=== PATIENT | female | born 1940 | race Caucasian/White ===

== ENCOUNTER 2024-12-08 13:57 | Outpatient (REF) | payer MEDICARE, SELFPAY ==
--- OUTSIDE RECORDS SUMMARY | 2024-12-08 14:55 | XMS_ITS | Encounter Summary ---
Author Organization [employer] Address [address] [place] [address] 7 [place] [address] Care Team Providers Care Trauma Surgeon Name Role Phone Name, Andre BARROSO Primary Care Provider [phone] Reason for Visit * Reason Onset Date Comments FYI 07/26/2023 Encounter Details Date Type Department Care Team (Late st Contact Info) Description 07/26/2023 Telephone [facility] MEDICINE [address] [place], [place] [phone] Name, MD Andre [address] [place], [place] [phone] Social History Tobacco Use Types Packs/Day Years Used Date Smoking Tobacco: Never Smokeless Tobacco: Never Alcohol Use Standard Drinks/Week Comments Never 0 (1 standard drink = 0.6 oz pur e alcohol) Depression Answer Date Recorded Patient Health Questionnaire-9 Score 7 05/06/2023 Depression Answer Date Recorded Patient Health Questionnaire-2 Score 2 05/06/2023 Comments Unknown Sex and Gender Information Value Date Recorded Sex Assigned at Female 09/10/2022 10:29 AM EDT Legal Sex Female 10:29 AM EDT Gender Identity Female 09/10/2022 10:29 AM EDT Sexual Orientation Don't know 09/10/2022 10 :29 AM EDT documented as of this encounter Miscellaneous Notes * Telephone Encounter - Mamie Cheng - 07/31/2023 4:19 PM EDT Ryan Rocha at [facility] stating pt is refusing services till after Aug 14. * Telephone Encounter - Joycelyn Zamarripa - 07/26/2023 2:35 PM EDT Ryan perez Sami at [facility] calling to inform PCP, patient has refused to be seen for intake. documented in this encounter Plan of Treatment Not on file documented as of this encounter Visit Diagnoses Not on filedocumented in this encounter Additional Health Concerns Assessment Noted Time PHQ-9 Depression Total Score: 7 05/06/20 23 2:31 PM EDT documented as of this encounter Care Teams Trauma Surgeon Relationship Specialty Start Date End Date Name, MD Andre [address] [place] [address] PCP - General Family Medicine 02/06/16 documented as of this encounter
--- OUTSIDE RECORDS SUMMARY | 2024-12-08 14:55 | XMS_ITS | Clinical Summary ---
Author Organization [employer] Address [address] [place] [address] 7t [place] [address] Care Team Providers Care Recreational Vehicle Resort Manager Name Role Phone Name, Andre BARROSO Primary Care Provider [phone] Allergies Active Allergy Reactions Criticality Noted Date Comments Erythromycin Palpitations Low 09/26/2022 Penicillin G Rash Low 07/10/2023 Penicillins 09/07/2020 Phenobarbital 07/10/2023 Procaine 07/10/2023 Sulfamethoxazole 09/07/2020 Sulfamethoxazole-Trimethoprim 2022 Thioridazine 07/10/2023 Trimethoprim 09/07/2020 Medications albuterol 108 (90 Base) MCG/ACT inhaler 2 inhalation EVERY 4 HOURS NEEDED For Delivery 36 g 11/18/19 25 Active fluticasone furoate (Arnuity Ellipta) 100 MCG/ACT inhaler Inhale 1 puff Once per day. Rinse mouth with water after use to reduce aftertaste and incidence of candidiasis. Do not swallow. 1 each 2 12/08/19 25 026 Active metoprolol tartrate (Lopressor) 25 MG tablet TAKE 1 TABLET BY MOUTH TWICE A DAY 60 tablet 12/08/19 25 Active ciprofloxacin (Cipro) 500 MG tablet Take 1 tablet (500 mg) by mouth 2 times daily for 5 days. 10 tablet 12/08/19 25 025 Active metoprolol tartrate (Lopressor) 25 MG tablet TAKE 1 TABLET BY MOUTH TWICE A DAY 60 tablet 01/03/20 24 025 Discontinued(Re order (will not trigger notification to Pharmacy)) albuterol 108 (90 Base) MCG/ACT inhaler 2 inhalation EVERY 4 HOURS NEEDED For Delivery 36 g 11 01/03/20 24 025 Discontinued(Re order (will not trigger notification to Pharmacy)) Active Problems Patient Care Coordination No te Formatting of this note migh t be different from the original. C3/CM Sparkle Harper RN Problem Noted Date Diagnosed Date Fear of side effects of medication 01/20/2024 Closed fracture of neck of left femur with routi ne healing 07/11/2023 Status post open reduction a nd internal fixation (ORIF) of fracture 07/11/2023 Age-related osteoporosis wit h current pathological fracture with routine healing 07/11/2023 Assessment & Plan (05/22/2024 6:31 AM EDT): She refuses Fosamax I asked to at least consider OTC Ca+vit D but supplements maker her nauseous She is trying to increase vit D in her diet and we went over a lest of Vit D rich foods Paroxysmal atrial fibrillation 04/12/2023 Assessment & Plan (05/22/2024 6:27 AM EDT): I recommended to use the metoprolol regularly I recommended to use Eliquis but she refused again Asthma 02/10/2016 Assessment & Plan (05/22/2024 6:29 AM EDT): I recommended to start a preventive inhaler or at least daily Singulair but she refused She is only comfortable using PRN albuterol but uses it daily She has not been hospitalized for asthma since she is my patient (more than 10 years) Encounters Date Type Department Care Team Description 12/08/2024 1:15 PM EST Office Visit [facility] MEDICINE [address] [place] [address] Andre Rhodes MD Uncomplicated asthma, unspecified asthma severity, unspecified whether persistent (Primary Dx); Paroxysmal atrial fibrillation (CMS/HCC); Earache on right; Decreased hearing of right ear 11/18/2024 Telephone [facility] MEDICINE [address] [place], [place] [phone] Andre Rhodes MD Med Refill 11/18/2024 Refill [facility] [address] [place], [place] [phone] Andre Rhodes MD from Last 3 Months Social History Tobacco Use Types Packs/Day Years Used Date Smoking Tobacco: Never Smokeless Tobacco: Never Tobacco Cessation:Counseling Given: Not Answered Alcohol Use Standard Drinks/Week Comments Never 0 (1 standard drink = 0.6 oz pur e alcohol) Alcohol Answer Date Recorded Frequency of Alcohol Consumption Not on file 05/21/2024 Average Number of Drinks Not on file 024 Frequency of Binge Drinking Not on file 05/11 Score 0 05/21/2024 Depression Answer Date Recorded Patient Health Questionnaire-9 Score 8 05/21/2024 Patient Health Questionnaire-9 Score 8 05/21/2024 Last PHQ-9: Questionnaire Data Not on file 0 05/21/2024 Housing Stability Answer Date Recorded What is your housing situation today? I have jourdan victor 05/21/[address] you li ve. Do you have problems with any of the following? None of the above 05/21/2024 Food Insecurity Answer Date Recorded Within the past 12 months, y ou worried that your food would run out before you got money to buy more: Never True 05/21/2024 Within the past 12 months,th e food you bought just didn't last and you didn't have enough money to get more: Never True 09/2024 Transportation Answer Date Recorded In the past 12 months, has l ack of transportation kept you from medical appts, meetings, work or from getting things needed for daily living? No 05/21/2024 Utilities Answer Date Recorded In the past 12 months, has t he electric, gas, oil or water company threatened to shut off services in your home? No 05/21/2024 Depression Answer Date Recorded Patient Health Questionnaire-2 Score 6 05/21/2024 Internet Access Answer Date Recorded Internet Access Q1 No 07/13/2024 Internet Access Q2 I do not want or need it 12/2023 Comments Unknown Sex and Gender Information Value Date Recorded Sex Assigned at Female 09/10/2022 10:29 AM EDT Legal Sex Female 10:29 AM EDT Gender Identity Female 09/10/2022 10:29 AM EDT Sexual Orientation Don't know 09/10/2022 10 :29 AM EDT Last Filed Vital Signs Vital Sign Reading Time Taken Comments Blood Pressure 151/95 12/08/2024 1:28 PM EST Pulse 62 12/08/2024 1:28 PM EST Temperature 36.7 ??C (98.1 ??F) 12/08/2024 1:28 PM ES T Respiratory Rate 12 12/08/2024 1:28 PM EST Oxygen Saturation 95% 12/08/2024 1:28 PM EST Inhaled Oxygen Concentration - - Weight 48.4 kg (106 lb 12.8 oz) 12/08/2024 1:28 PM EST Height 160 cm (5' 3 ) 05/21/2024 1:27 PM EDT Body Mass Index 18.92 05/21/2024 1:27 PM EDT Plan of Treatment Health Maintenance Due Date Last Done Comments Pneumococcal Vaccine: 65+ Years (1 of 2 - PCV) 1947 DTaP/Tdap/Td Vaccines (1 - Tdap) 1960 Zoster Vaccines (1 of 2) 1991 RSV Patients and Patients Aged 60 years or older (1 - 1-dose 75+ series) 2016 COVID-19 Vaccine ( - 2023-2 5 season) 2024 Influenza Vaccine (#1) 2024 Alcohol/Substance Use Screening 05/21/2025 05/21/2024 Depression Screening 05/21/2025 05/21/2024, 05/21/2024 SDOH Screening 05/21/2025 05/21/2024 Tobacco Screening 12/08/2025 12/08/2024 HIB Vaccines Aged Out No longer eligi ble based on patient's age to complete this topic HPV Vaccines Aged Out No longer eligi ble based on patient's age to complete this topic Hepatitis A Vaccines Aged Out No long er eligible based on patient's age to complete this topic Hepatitis B Vaccines Aged Out No long er eligible based on patient's age to complete this topic IPV Vaccines Aged Out No longer eligi ble based on patient's age to complete this topic Meningococcal Vaccine Aged Out No john silverio eligible based on patient's age to complete this topic RSV under 20 months Aged Out No longe r eligible based on patient's age to complete this topic Rotavirus Vaccines Aged Out No longer eligible based on patient's age to complete this topic Insurance MEDICARE Care Teams Recreational Vehicle Resort Manager Relationship Specialty Start Date End Date Name, MD Andre [address] [place] [id number] PCP - General Family Medicine 02/06/16
--- OUTSIDE RECORDS SUMMARY | 2024-12-08 14:55 | XMS_ITS | Encounter Summary ---
Author Organization [employer] Address [address] [facility] 7t [place] [address] Care Team Providers Care Dinkey Operator Slag Name Role Phone Name, Andre BARROSO Primary Care Provider [phone] Reason for Visit * Reason Onset Date Comments Appointment Request 09/19/2023 Encounter Details Date Type Department Care Team ([facility] st Contact Info) Description 09/19/2023 Telephone [facility] MEDICINE [address] [place], [place] [phone] Name, MD Andre [address] [place], [place] [phone] Appointment Request Social History Tobacco Use Types Packs/Day Years Used Date Smoking Tobacco: Never Smokeless Tobacco: Never Alcohol Use Standard Drinks/Week Comments Never 0 (1 standard drink = 0.6 oz pur e alcohol) Depression Answer Date Recorded Patient Health Questionnaire-9 Score 7 05/06/2023 Housing Stability Answer Date Recorded What is your housing situation today? I have jourdanshaun victor 08/27/[address] you li ve. Do you have problems with any of the following? None of the above 08/27/2023 Food Insecurity Answer Date Recorded Within the past 12 months, y ou worried that your food would run out before you got money to buy more: Never True 08/27/2023 Within the past 12 months,th e food you bought just didn't last and you didn't have enough money to get more: Never True Transportation Answer Date Recorded In the past 12 months, has l ack of transportation kept you from medical appts, meetings, work or from getting things needed for daily living? Yes, it has kept me from medical appointments or getting medications. 08/22/2023 Utilities Answer Date Recorded In the past 12 months, has t he [employer], [employer], oil or water [employer] threatened to shut off services in your home? No 08/27/2023 Depression Answer Date Recorded Patient Health Questionnaire-2 Score 2 05/06/2023 Comments Unknown Sex and Gender Information Value Date Recorded Sex Assigned at Female 09/10/2022 10:29 AM EDT Legal Sex Female 10:29 AM EDT Gender Identity Female 09/10/2022 10:29 AM EDT Sexual Orientation Don't know 09/10/2022 10 :29 AM EDT documented as of this encounter Miscellaneous Notes * Telephone Encounter - Marsha [place] - 09/19/2023 2:00 PM EST Tc from pt to schedule f/u appt, expert medical writer attempted to schedule but pt want a televisit instead of coming to the office, need PCP authorization. Please contact pt with appt [phone]. documented in this encounter Plan of Treatment Not on file documented as of this encounter Visit Diagnoses Not on filedocumented in this encounter Additional Health Concerns Assessment Noted Time PHQ-9 Depression Total Score: 7 05/06/20 23 2:31 PM EDT documented as of this encounter Care Teams Dinkey Operator Slag Relationship Specialty Start Date End Date Name, MD Andre [address] [place] [address] PCP - General Family Medicine 02/06/16 documented as of this encounter
--- OUTSIDE RECORDS SUMMARY | 2024-12-08 14:55 | XMS_ITS | Encounter Summary ---
Author Organization [employer] Address [address] [place] [address] 7t [place] [address] Care Team Providers Care Design Printing Machine Setter Name Role Phone Name, Andre BARROSO Primary Care Provider [phone] Reason for Visit * Reason Onset Date Comments Care Coordination 04/30/2023 Encounter Details Date Type Department Care Team ([facility] st Contact Info) Description 04/30/2023 Telephone [facility] MEDICINE [address] [place], [place] [phone] Name, MD Andre [address] [place], [place] [phone] Care Coordination Social History Tobacco Use Types Packs/Day Years Used Date Smoking Tobacco: Never Assessed Alcohol Answer Date Recorded Frequency of Alcohol [...] Don't know 09/10/2022 10 :29 AM EDT COVID-19 Exposure Response Date Recorded In the last 10 days, have yo u been in contact with someone who was confirmed or suspected to have Coronavirus/COVID-19? No / Unsure 05/06/2023 2:10 PM EDT documented as of this encounter Miscellaneous Notes * Telephone Encounter - Kezia Grewal - 04/30/2023 2:27 PM EDT Tc from pt returning call. documented in this encounter Plan of Treatment Not on file documented as of this encounter Visit Diagnoses Not on filedocumented in this encounter Care Teams Design Printing Machine Setter Relationship Specialty Start Date End Date Name, MD Andre [address] [place] [address] PCP - General Family Medicine 02/06/16 documented as of this encounter
--- OUTSIDE RECORDS SUMMARY | 2024-12-08 14:55 | XMS_ITS | Encounter Summary ---
Author Organization [employer] Address [address] [place] [address] 7t [place] [address] Care Team Providers Care Surface Water Technician Name Role Phone Name, Andre BARROSO Primary Care Provider [phone] Reason for Visit * Reason Onset Date Comments Results 05/15/2023 Encounter Details Date Type Department Care Team ([facility] st Contact Info) Description 05/15/2023 Telephone [facility] MEDICINE [address] [place], [place] [phone] Name, MD Andre [address] [place], [place] [phone] Results Social History Tobacco Use Types Packs/Day Years [...] encounter Miscellaneous Notes * Telephone Encounter - Patricio George RN - 05/16/2023 1:04 PM EDT T/C to [phone] for below message, No answer. LVM to call back on [phone]. * Telephone Encounter - Kezia Grewal - 05/15/2023 3:02 PM EDT Tc from pt requesting lab results, pt would like results printed and sent to home address on file. Please contact at [phone] documented in this encounter Plan of Treatment Not on file documented as of this encounter Visit Diagnoses Not on filedocumented in this encounter Additional Health Concerns Assessment Noted Time PHQ-9 Depression Total Score: 7 05/06/20 23 2:31 PM EDT documented as of this encounter Care Teams Surface Water Technician Relationship Specialty Start Date End Date Name, MD Andre [address] [place] [address] PCP - General Family Medicine 02/06/16 documented as of this encounter
--- OUTSIDE RECORDS SUMMARY | 2024-12-08 14:55 | XMS_ITS | Encounter Summary ---
Author Organization [employer] Address [address] [facility] 7t [place] [address] Care Team Providers Care Marketing Analytics Analyst Name Role Phone Name, Andre BARROSO Primary Care Provider Reason for Visit * Reason Onset Date Comments FYI 09/19/2023 Encounter Details Date Type Department Care Team ([facility] st Contact Info) Description 09/19/2023 Telephone [facility] MEDICINE [address] [place], [place] [phone] Name, MD Andre [address] [place], [place] [phone] FYI Social History Tobacco Use Types Packs/Day Years [...] the past 12 months, has t he [employer], [employer], oil or water [facility] threatened to shut off services in your [...] encounter Miscellaneous Notes * Telephone Encounter - Radha Prieto RN - 09/20/2023 10:05 AM EST Tc from Rosario with [facility] calling to advise PCP pt is refusing PT services and will be discharged. Any questions, please contact Rosario at [phone] TC to patient and to Rosario to follow up on above message. No answer. Routing to PCP for review. * Telephone Encounter - Anneliese Iglesias - 09/19/2023 4:21 PM EST Tc from Rosario with [facility] calling to advise PCP pt is refusing PT services and will be discharged. Any questions, please contact Rosario at [phone] documented in this encounter Plan of Treatment Not on file documented as of this encounter Visit Diagnoses Not on filedocumented in this encounter Additional Health Concerns Assessment Noted Time PHQ-9 Depression Total Score: 7 05/06/20 23 2:31 PM EDT documented as of this encounter Care Teams Marketing Analytics Analyst Relationship Specialty Start Date End Date Name, MD Andre [address] [place] [address] PCP - General Family Medicine 02/06/16 documented as of this encounter
--- OUTSIDE RECORDS SUMMARY | 2024-12-08 14:55 | XMS_ITS | Encounter Summary ---
Author Organization [employer] Address [address] [place] [address] 7 [place] [address] Care Team Providers Care Steamboat Captain Name Role Phone Name, Andre BARROSO Primary Care Provider [phone] Reason for Visit * Reason Onset Date Comments Med Refill 11/18/2024 Encounter Details Date Type Department Care Team ([facility] st Contact Info) Description 11/18/2024 Telephone [facility] MEDICINE [address] [place], [place] [phone] Name, MD Andre [address] [place], [place] [phone] Med Refill Social History Tobacco Use Types Packs/Day Years [...] housing situation today? I have jourdanshaun victor 05/21/[address] you [...] encounter Miscellaneous Notes * Telephone Encounter - Anat Boudreaux RN - 11/18/2024 4:31 PM EST Incoming call from Anat at [facility] pharmacy. States rx received for albuterol inhaler form covering provider. Anat reports that pt fills 2 inhalers at a time with directions to take 2 puffs every 4 hrswhich is a 34 day supply. Anat reports that pt has consistently been filling this rx every 28 days. Anat states pt reported having an upcoming appointment. Anat requesting that pcp consider rx an inhaled corticosteroid at upcoming appointment. Message forwarded to pcp for review. * Telephone Encounter - Eddie Soto - 11/18/2024 9:42 AM EST TC from pt requesting medication refill. Medications needing refill : albuterol 108 (90 Base) MCG/ACT inhaler To be sent to: [facility] documented in this encounter Plan of Treatment Not on file documented as of this encounter Visit Diagnoses Not on filedocumented in this encounter Additional Health Concerns Assessment Noted Time PHQ-9 Depression Total Score: 8 05/21/20 24 1:45 PM EDT documented as of this encounter Care Teams Steamboat Captain Relationship Specialty Start Date End Date Name, MD Andre [address] [place] [address] PCP - General Family Medicine 02/06/16 documented as of this encounter
--- OUTSIDE RECORDS SUMMARY | 2024-12-08 14:55 | XMS_ITS | Encounter Summary ---
Author Organization [employer] Address [address] [place] [address] 7 [place] [address] Care Team Providers Care Store Loss Prevention Manager Name Role Phone Name, Andre BARROSO Primary Care Provider [phone] Reason for Visit * Reason Onset Date Comments FYI 07/10/2023 Encounter Details Date Type Department Care Team ([facility] st Contact Info) Description 07/10/2023 Telephone [facility] MEDICINE [address] [place], [place] [phone] Name, MD Andre [address] [place], [place] [phone] Social History Tobacco Use Types Packs/Day Years [...] encounter Miscellaneous Notes * Telephone Encounter - Chriss Merritt - 07/10/2023 9:08 AM EDT Tc from Estrella with [facility] visiting services informing that on today's visit pt refuse service but will try again on Saturday if pt refuses services than will have to discharge patient from services. If any questions please contact Estrella at [phone] documented in this encounter Plan of Treatment Not on file documented as of this encounter Visit Diagnoses Not on filedocumented in this encounter Additional Health Concerns Assessment Noted Time PHQ-9 Depression Total Score: 7 05/06/20 23 2:31 PM EDT documented as of this encounter Care Teams Store Loss Prevention Manager Relationship Specialty Start Date End Date Name, MD Andre [address] [place] [address] PCP - General Family Medicine 02/06/16 documented as of this encounter
--- OUTSIDE RECORDS SUMMARY | 2024-12-08 14:55 | XMS_ITS | Encounter Summary ---
Author Organization [employer] Address [address] [place] [address] 7 [place] [address] Care Team Providers Care Geotechnician Name Role Phone Name, Andre BARROSO Primary Care Provider [phone] Encounter Details Date Type Department Care Team (Late st Contact Info) Description 07/05/2023 Telephone [facility] MEDICINE [address] [place], [place] [phone] Name, MD Andre [address] [place] [address] Social History Tobacco Use Types Packs/Day Years [...] AM EDT documented as of this encounter Plan of Treatment Not on file documented as of this encounter Visit Diagnoses Not on filedocumented in this encounter Additional Health Concerns Assessment Noted Time PHQ-9 Depression Total Score: 7 05/06/20 23 2:31 PM EDT documented as of this encounter Care Teams Geotechnician Relationship Specialty Start Date End Date Name, MD Andre [address] [place] [address] PCP - General Family Medicine 02/06/16 documented as of this encounter
--- OUTSIDE RECORDS SUMMARY | 2024-12-08 14:55 | XMS_ITS | Encounter Summary ---
Author Organization [employer] Address [address] [facility] 7t [place] [address] Care Team Providers Care Electrical Prospecting Supervisor Name Role Phone Name, Andre BARROSO Primary Care Provider [phone] Reason for Visit * Reason Onset Date Comments Appointment Request 12/04/2023 Encounter Details Date Type Department Care Team ([facility] st Contact Info) Description 12/04/2023 Telephone [facility] MEDICINE 230 [place], [place] [phone] Name, MD Andre [address] [place], [place] [phone] Appointment Request Social History Tobacco Use Types [...] the past 12 months, has t he [employer], [employer], oil or water [employer] threatened to shut off services in your [...] * Telephone Encounter - Chriss Merritt - 12/04/2023 1:58 PM EST Tc from pt requesting to r/s follow up appt on 12/18/23 due to transportation. Pt provided days that could come in, in January which are: January 13,,, Please contact pt @ [phone] documented in this encounter Plan of Treatment Not on file documented as of this encounter Visit Diagnoses Not on filedocumented in this encounter Additional Health Concerns Assessment Noted Time PHQ-9 Depression Total Score: 7 05/06/20 23 2:31 PM EDT documented as of this encounter Care Teams Electrical Prospecting Supervisor Relationship Specialty Start Date End Date Name, MD Andre [address] [place] [address] PCP - General Family Medicine 02/06/16 documented as of this encounter
--- OUTSIDE RECORDS SUMMARY | 2024-12-08 14:55 | XMS_ITS | Encounter Summary ---
Author Organization [employer] Address [address] [facility] 7t [place] [address] Care Team Providers Care Cheerleading Coach Name Role Phone Name, Andre BARROSO Primary Care Provider [phone] Reason for Visit * Reason Onset Date Comments Appointment Request 12/16/2023 Encounter Details Date Type Department Care Team ([facility] st Contact Info) Description 12/16/2023 Telephone [facility] MEDICINE [address] [place], [place] [phone] Name, MD Andre [address] [place], [place] [phone] Appointment Request Social History Tobacco Use Types [...] the past 12 months, has t he [employer], [employer], oil or [employer] threatened to shut off services in your [...] Telephone Encounter - Patricio George RN - 12/16/2023 10:38 AM EST T/C to pt. For below message, pt. States she wants to re-schedule apt. Due to her son brings her toapt. And her son is available on below dates only. After get approval from Dominique, pt. Is schedulefor FU apt. On @ 3.45 pm. Pt. Verbally agreed and understood. Tc from patient calling to cancel appt on 01/13 with the PCP states the only availability the patient haves is on 01/12,01/19,02/05,02/06 and would like a afternoon appt if possible * Telephone Encounter - Jalil Troncoso - 12/16/2023 9:40 AM EST Tc from patient calling to cancel appt on 01/13 with the PCP states the only availability the patienthaves is on 01/12,01/19,02/05,02/06 and would like a afternoon appt if possible documented in this encounter Plan of Treatment Not on file documented as of this encounter Visit Diagnoses Not on filedocumented in this encounter Additional Health Concerns Assessment Noted Time PHQ-9 Depression Total Score: 7 05/06/20 23 2:31 PM EDT documented as of this encounter Care Teams Cheerleading Coach Relationship Specialty Start Date End Date Name, MD Andre [address] [place] [id number] PCP - General Family Medicine 02/06/16 documented as of this encounter
--- OUTSIDE RECORDS SUMMARY | 2024-12-08 14:55 | XMS_ITS | Encounter Summary ---
Author Organization [employer] Address [address] [place] [address] 7 [place] [address] Care Team Providers Care Instructional Support Technician Name Role Phone Name, Andre BARROSO Primary Care Provider [phone] Reason for Visit * Reason Comments Follow-up extended Encounter Details Date Type Department Care Team (Latest Contact Info) Description 12/08/2024 1:15 PM EST Office Visit [facility] MEDICINE [address] [place] [address] Name, MD Andre [address] [place] [phone] Uncomplicated asthma, unspecified asthma severity, unspecified whether persistent (Primary Dx); Paroxysmal atrial fibrillation (CMS/HCC); Earache on right; Decreased hearing of right ear Social History Tobacco Use Types Packs/Day Years [...] AM EDT documented as of this encounter Last Filed Vital Signs Vital Sign Reading [...] 12.8 oz) 12/08/2024 1:28 PM EST Height - - Body Mass Index 18.92 05/21/2024 1:27 PM EDT documented in this encounter Progress Notes * Andre Rhodes MD - 12/08/2024 1:15 PM EST Subjective Patient ID: Karrie Vera is a 84 y.o. female who presents for Follow-up (extended). Patient comes for a follow-up visit. She is alone for her visit today. She is examined in a wheelchair. The patient explains to me that she lives alone and is independent. She has a supportive familymembers. The patient does not walk much since she had a femur fracture 2 years ago. She has osteoporosis. In general she is reluctant to use medications. She has paroxysmal A-fib that is rate controll ed on metoprolol but she refuses anticoagulation. She has years of asthma and has refused multiple times to use preventive inhalers. She has never been hospitalized since she is my patient for more than 10 years. She uses albuterol regularly. She uses ehma-pea-juoyits calcium with vitamin D but refuses Fosamax. Her memory is good. She feels he has enough support at home. She refuses any vaccination. Her weight is stable. She tells me she has a good appetite. Her son brings her to appointments Review of Systems Constitutional: Negative for chills and fever. HENT: Negative for sore throat. Today she complains of several days of right ear discomfort and decreased hearing. No fevers or chills. No vertigo. The patient believes she has a right otitis media. She had similar symptoms severalyears ago. Respiratory: Negative for cough, shortness of breath and wheezing. Cardiovascular: Negative for chest pain, palpitations and leg swelling. Gastrointestinal: Negative for abdominal pain. Visit Vitals BP (!) 151/95 (BP Location: Left arm, Patient Position: Sitting, BP Cuff Size: Adult) Pulse 62 Temp 98.1 ??F (36.7 ??C) (Temporal) Resp 12 Wt 106 lb 12.8 oz (48.4 kg) SpO2 95% BMI 18.92 kg/m?? Smoking Status Never BSA 1.47 m?? Objective Physical Exam Constitutional: Appearance: Normal appearance. Comments: Patient is examined in her wheelchair HENT: Right Ear: External ear normal. Left Ear: External ear normal. Ears: Comments: Patient had moderate amount of cerumen of both ear canals. I cannot visualize the right tympanic membrane well. Cardiovascular: Rate and Rhythm: Normal rate. Rhythm irregular. Heart sounds: No murmur heard. No gallop. Pulmonary: Effort: Pulmonary effort is normal. No respiratory distress. Breath sounds: Normal breath sounds. No wheezing. Musculoskeletal: Right lower leg: No edema. Left lower leg: No edema. Neurological: Mental Status: She is alert. Assessment/Plan Diagnoses and all orders for this visit: Uncomplicated asthma, unspecified asthma severity, unspecified whether persistent Comments: The patient agreed to a trial of daily Arnuity for asthma prevention. We discussed the benefits of inhaled steroid for treatment of asthma. Continue rescue albuterol. Paroxysmal atrial fibrillation (CMS/HCC) Comments: Patient refuses Eliquis. She knows she is at an increased risk of strokes. I encouraged her to use the metoprolol daily for rate control. Earache on right Comments: I agreed to treat the patient empirically for right otitis media. She has numerous antibiotic allergies. I prescribed her a course of Cipro. She tolerated Cipro in the past without any problems. She is asked to call if her symptoms persist Decreased hearing of right ear Other orders She is reminded to go for the blood work ordered at her previous visit because of her history of osteoporosis. - fluticasone furoate (Arnuity Ellipta) 100 MCG/ACT inhaler; Inhale 1 puff Once per day. Rinse mouth with water after use to reduce aftertaste and incidence of candidiasis. Do not swallow. - metoprolol tartrate (Lopressor) 25 MG tablet; TAKE 1 TABLET BY MOUTH TWICE A DAY - ciprofloxacin (Cipro) 500 MG tablet; Take 1 tablet (500 mg) by mouth 2 times daily for 5 days. documented in this encounter Plan of Treatment Not on file documented as of this encounter Visit Diagnoses Diagnosis Uncomplicated asthma, unspecified asthma severity, unspecified whether persistent- Primary Paroxysmal atrial fibrillation (CMS/HCC) Atrial fibrillation Earache on right Decreased hearing of right ear documented in this encounter Additional Health Concerns Assessment Noted Time PHQ-9 Depression Total Score: 8 05/21/20 24 1:45 PM EDT documented as of this encounter Care Teams Instructional Support Technician Relationship Specialty Start Date End Date Name, MD Andre [address] [place] [address] PCP - General Family Medicine 02/06/16 documented as of this encounter
--- OUTSIDE RECORDS SUMMARY | 2024-12-08 14:55 | XMS_ITS | Encounter Summary ---
Author Organization [employer] Address [address] [facility] 7t [place] [address] Care Team Providers Care Calender Let Off Helper Name Role Phone Name, Andre BARROSO Primary Care Provider [phone] Reason for Visit * Reason Onset Date Comments Med Refill 11/18/2024 Encounter Details Date Type Department Care Team (Late st Contact Info) Description 11/18/2024 Refill [facility]S [address] [place], [place] [phone] Name, MD Andre [address] [place] [address] Social History Tobacco Use Types Packs/Day Years [...] your housing situation today? I have jourdan kayleigh 05/21/[address] you li [...] documented as of this encounter Care Teams Calender Let Off Helper Relationship Specialty Start Date End Date Name, MD Andre [address] [place] [address] PCP - General Family Medicine 02/06/16 documented as of this encounter
[2024-12-08 16:48] LABS: Anion Gap 11 (12-20); Blood Urea Nitrogen 13 mg/dL (9-16); Calcium 9.2 mg/dL (8.4-10.2); Carbon Dioxide 28 mmol/L (22-29); Chloride 104 mmol/L (96-108); Estimated Glomerular Filt Rate > 60; Glucose Random 103 mg/dL (60-115); Potassium 3.9 mmol/L (3.3-5.1); Sodium 139 mmol/L (135-145)
[2024-12-08 17:01] LABS: Vitamin D 25-OH Total 27.1 ng/mL (>30)
[2024-12-08 17:04] LABS: Parathyroid Hormone Intact 79.9 pg/mL (8.7-77.1)
== END 2024-12-08 13:58 | disposition home or self-care (01) ==
LOC: HO.HHCL 13:57
PROVIDERS: Visit Provider Internal Medicine Geriatric Medicine
DX: M80.00XD Age-related osteoporosis with current pathological fracture, unspecified site, subsequent encounter for fracture with routine healing (principal)
CPT/HCPCS: 36415; 80048; 82306; 83970

== ENCOUNTER 2025-09-15 15:08 | Outpatient (REF) | payer MEDICARE, SELFPAY ==
--- OUTSIDE RECORDS SUMMARY | 2025-09-15 14:30 | XMS_ITS | Encounter Summary ---
Author Organization [employer] Address [address] [place] [address] 7t [place] [address] Care Team Providers Care Sheriffs Detective Name Role Phone Name, Andre BARROSO Primary Care Provider [phone] Reason for Visit * Reason Comments Follow-up Encounter Details Date Type Department Care Team (Late st Contact Info) Description 09/15/2025 2:30 PM EST Office Visit [facility] MEDICINE [address] [place], [place] [phone] Name, MD Andre [address] [place] [address] Asthma, unspecified asthma severity, unspecified whether complicated, unspecified whether persistent (Primary Dx); Fear of side effects of medication; Chronic atrial fibrillation (CMS/HCC) (HCC); Rib pain; Vaccine refused by patient Social History Tobacco Use Types Packs/Day Years [...] Answer Date Recorded Patient Health Questionnaire-9 Score 6 03/31/2025 Patient Health Questionnaire-9 Score 6 03/31/2025 Last PHQ-9: Questionnaire Data Not on file 0 03/31/2025 Housing Stability Answer Date Recorded What is [...] Answer Date Recorded Patient Health Questionnaire-2 Score 0 03/31/2025 Internet Access Answer Date Recorded Internet Access Q1 Yes 06/12/2025 Internet Access Q2 Not on file 06/12/2025 Comments Unknown Sex and Gender Information Value Date Recorded Sex Assigned at Female 09/10/2022 10:29 AM EDT Legal Sex Female 10:29 AM EDT Gender Identity Female 09/10/2022 10:29 AM EDT Sexual Orientation Don't know 09/10/2022 10 :29 AM EDT documented as of this encounter Last Filed Vital Signs Vital Sign Reading Time Taken Comments Blood Pressure 138/82 09/15/2025 2:33 PM EST Pulse 112 09/15/2025 2:33 PM EST Temperature 36.1 C (97 F) 09/15/2025 2:33 PM EST Respiratory Rate 14 09/15/2025 2:33 PM EST Oxygen Saturation 98% 09/15/2025 2:33 PM EST Inhaled Oxygen Concentration - - Weight 45.9 kg (101 lb 3.2 oz) 09/15/2025 2:33 P M EST Height 160 cm (5' 3 ) 09/15/2025 2:33 PM EST Body Mass Index 17.93 09/15/2025 2:33 PM EST documented in this encounter Progress Notes * Andre Rhodes MD - 09/15/2025 2:30 PM EST Subjective Patient ID: Karrie Vera is a 85 y.o. female who presents for Follow-up. Patient comes for a follow-up visit. Unfortunately she continues using only albuterol for asthma 3-4 times a day. She is very reluctant to use preventative asthma medication because of fear of possible side effects. I prescribed Arnuity back in November that she never used. I have tried for years toconvince her to use preventive inhalers without success. Fortunately she has not had any ER visits for asthma. No recent URI symptoms. No fevers or chills. She continues to refuse any vaccination. Since her last appointment she had a fall that resulted in trauma to the left anterior chest. She had significant pain and initially that has mostly resolved by now. She is only using topical NSAIDs for pain. She denies trauma to the head. She did not have loss of consciousness. Review of Systems Constitutional: Negative for chills and fever. HENT: Negative for sore throat. Respiratory: Positive for shortness of breath. Negative for cough and wheezing. Cardiovascular: Negative for chest pain, palpitations and leg swelling. Gastrointestinal: Negative for abdominal pain. Musculoskeletal: See HPI Objective Vitals: 09/15/25 1433 BP: 138/82 BP Location: Left arm Patient Position: Sitting BP Cuff Size: Adult Pulse: (!) 112 Resp: 14 Temp: 97 ??F (36.1 ??C) TempSrc: Temporal SpO2: 98% Weight: 101 lb 3.2 oz (45.9 kg) Height: 5' 3 (1.6 m) Physical Exam Constitutional: General: She is not in acute distress. Cardiovascular: Rate and Rhythm: Tachycardia present. Rhythm irregular. Pulmonary: Effort: Pulmonary effort is normal. No respiratory distress. Breath sounds: No wheezing. Musculoskeletal: Right lower leg: No edema. Left lower leg: No edema. Neurological: General: No focal deficit present. Mental Status: She is oriented to person, place, and time. Motor: No weakness. Assessment/Plan Diagnoses and all orders for this visit: Asthma, unspecified asthma severity, unspecified whether complicated, unspecified whether persistent Comments: I discussed the importance of treating bronchial inflammation. I discussed the pathophysiology of asthma. I explained to her the multiple trials showing the effectiveness and safety of inhaled steroids for asthma prevention/decrease severity of asthma attacks. She is encouraged to use the Arnuity she has at home. Continue rescue albuterol. Today she refused any vaccination. Fear of side effects of medication Chronic atrial fibrillation (CMS/HCC) (HCC) Comments: The patient is in A-fib. She is not interested in the use of Eliquis or metoprolol. She understand A-fib increases the risk of stroke. Rib pain Comments: Mild. I recommended to continue using OTC topical remedies. Vaccine refused by patient Comments: Patient refused any vaccination today. documented in this encounter Plan of Treatment Not on file documented as of this encounter Visit Diagnoses Diagnosis Asthma, unspecified asthma severity, unspecified whether complicated, unspecified whether persistent- Primary Fear of side effects of medication Chronic atrial fibrillation (CMS/[facility]) (HCC) Atrial fibrillation Rib pain Unspecified chest pain Vaccine refused by patient documented in this encounter Additional Health Concerns Assessment Noted Time PHQ-9 Depression Total Score: 6 03/31/20 25 2:28 PM EDT documented as of this encounter Care Teams Sheriffs Detective Relationship Specialty Start Date End Date Name, MD Andre [address] [place] [address] PCP - General Family Medicine 02/06/16 documented as of this encounter
[2025-09-15 16:34] LABS: Anion Gap 11 (12-20); Blood Urea Nitrogen 12 mg/dL (9-16); Calcium 9.0 mg/dL (8.4-10.2); Carbon Dioxide 30 mmol/L (22-29); Chloride 106 mmol/L (96-108); Estimated Glomerular Filt Rate > 60; Potassium 4.5 mmol/L (3.3-5.1); Sodium 142 mmol/L (135-145)
[2025-09-15 17:06] LABS: Parathyroid Hormone Intact 92.7 pg/mL (8.7-77.1)
--- OUTSIDE RECORDS SUMMARY | 2025-09-15 18:10 | XMS_ITS | Encounter Summary ---
Author Organization [employer] Address [address] [place] [address] [address] [place] [address] Care Team Providers Care Chief Clerk Name Role Phone Name, Andre BARROSO Primary Care Provider Reason for Visit * Reason Onset Date Comments FYI 07/10/2023 Encounter Details Date Type Department Care Team (Late st Contact Info) Description 07/10/2023 Telephone [facility] MEDICINE 230 [place], [place] [phone] Name, MD Andre [address] [place] [address] Social History Tobacco Use Types Packs/Day Years [...] Merritt - 07/10/2023 9:08 AM EDT Tc ana De La Rosa with Homehealth visiting services informing that on today's visit pt refuse service but will try again on Saturday if pt refuses services than will have to discharge patient from services. If any questions please contact Estrella at [phone] documented in this encounter Plan of Treatment Not on file documented as of this encounter Visit Diagnoses Not on filedocumented in this encounter Additional Health Concerns Assessment Noted Time PHQ-9 Depression Total Score: 7 05/06/20 23 2:31 PM EDT documented as of this encounter Care Teams Chief Clerk Relationship Specialty Start Date End Date Name, MD Andre [address] [place] [address] PCP - General Family Medicine 02/06/16 documented as of this encounter
--- OUTSIDE RECORDS SUMMARY | 2025-09-15 18:10 | XMS_ITS | Encounter Summary ---
Author Organization [employer] Address [address] [facility] 7t [place] [address] Care Team Providers Care National Facilities Manager Name Role Phone Name, Andre BARROSO Primary Care Provider [phone] Reason for Visit * Reason Onset Date Comments Appointment Request 09/19/2023 Encounter Details Date Type Department Care Team (Late st Contact Info) Description 09/19/2023 Telephone [facility] MEDICINE [address] [place], [place] [phone] Name, MD Andre [address] [place] [address] Appointment Request Social History Tobacco Use Types [...] Tc from pt to schedule f/u appt, magnetic tape typewriter operator attempted to schedule but pt want a televisit instead of coming to the office, need PCP authorization. Please contact pt with appt [phone]. documented in this encounter Plan of Treatment Not on file documented as of this encounter Visit Diagnoses Not on filedocumented in this encounter Additional Health Concerns Assessment Noted Time PHQ-9 Depression Total Score: 7 05/06/20 23 2:31 PM EDT documented as of this encounter Care Teams National Facilities Manager Relationship Specialty Start Date End Date Name, MD Andre [address] [place] [address] PCP - General Family Medicine 02/06/16 documented as of this encounter
--- OUTSIDE RECORDS SUMMARY | 2025-09-15 18:10 | XMS_ITS | Encounter Summary ---
Author Organization [employer] Address [address] [place] [address] 7 [place] [address] Care Team Providers Care Professor Of Music Name Role Phone Name, Andre BARROSO Primary Care Provider [phone] Reason for Visit * Reason Onset Date Comments FYI 07/26/2023 Encounter Details Date Type Department Care Team (Late st Contact Info) Description 07/26/2023 Telephone [facility] MEDICINE [address] [place], [place] [phone] Name, MD Andre [address] [place] [address] Social History Tobacco Use Types Packs/Day Years [...] Mamie Cheng - 07/31/2023 4:19 PM EDT Tc ana Rocha at [facility] stating pt is refusing services till after Aug 14. * Telephone Encounter - Joycelyn Zamarripa - 07/26/2023 2:35 PM EDT Tc from [facility] at [facility] calling to inform PCP, patient has refused to be seen for intake. documented in this encounter Plan of Treatment Not on file documented as of this encounter Visit Diagnoses Not on filedocumented in this encounter Additional Health Concerns Assessment Noted Time PHQ-9 Depression Total Score: 7 05/06/20 23 2:31 PM EDT documented as of this encounter Care Teams Professor Of Music Relationship Specialty Start Date End Date Name, MD Andre [address] [place] [address] PCP - General Family Medicine 02/06/16 documented as of this encounter
--- OUTSIDE RECORDS SUMMARY | 2025-09-15 18:10 | XMS_ITS | Encounter Summary ---
Author Organization [employer] Address [address] [facility] 7t [place] [address] Care Team Providers Care Gate Watchman Name Role Phone Name, Andre BARROSO Primary Care Provider [phone] Reason for Visit * Reason Onset Date Comments Appointment Request 12/16/2023 Encounter Details Date Type Department Care Team (Late st Contact Info) Description 12/16/2023 Telephone [facility] MEDICINE [address] [place] [address] Name, MD Andre [address] [place] [address] Appointment Request Social History Tobacco Use Types [...] documented as of this encounter Care Teams Gate Watchman Relationship Specialty Start Date End Date Name, MD Andre [address] [place] [address] PCP - General Family Medicine 02/06/16 documented as of this encounter
--- OUTSIDE RECORDS SUMMARY | 2025-09-15 18:10 | XMS_ITS | Encounter Summary ---
Author Organization [employer] Address [address] [place] [address] 7[address] [place] [address] Care Team Providers Care Dental Aide Name Role Phone Name, Andre BARROSO Primary Care Provider [phone] Encounter Details Date Type Department Care Team (Late st Contact Info) Description 07/05/2023 Telephone [facility] MEDICINE [address] [place], [place] [phone] Name, MD Andre [address] [place] [address] Social History Tobacco Use Types Packs/Day Years [...] documented as of this encounter Care Teams Dental Aide Relationship Specialty Start Date End Date Name, MD Andre [address] [place] [address] PCP - General Family Medicine 02/06/16 documented as of this encounter
--- OUTSIDE RECORDS SUMMARY | 2025-09-15 18:10 | XMS_ITS | Encounter Summary ---
Author Organization [employer] Address [address] [facility] 7t [place] [address] Care Team Providers Care Intermediate Accountant Name Role Phone Name, Andre BARROSO Primary Care Provider [phone] Encounter Details Date Type Department Care Team (Latest Contact Info) Description 09/15/2025 Travel Social History Tobacco Use Types Packs/Day Years [...] documented as of this encounter Care Teams Intermediate Accountant Relationship Specialty Start Date End Date Name, MD Andre [address] [place] [address] PCP - General Family Medicine 02/06/16 documented as of this encounter
--- OUTSIDE RECORDS SUMMARY | 2025-09-15 18:10 | XMS_ITS | Encounter Summary ---
Author Organization [employer] Address [address] [facility] 7t [place] [address] Care Team Providers Care Oil Rig Driller Name Role Phone Name, Andre BARROSO Primary Care Provider [phone] Encounter Details Date Type Department Care Team (Latest Contact Info) Description 09/14/2025 Travel Social History Tobacco Use Types Packs/Day [...] documented as of this encounter Care Teams Oil Rig Driller Relationship Specialty Start Date End Date Name, MD Andre [address] [place] [address] PCP - General Family Medicine 02/06/16 documented as of this encounter
--- OUTSIDE RECORDS SUMMARY | 2025-09-15 18:10 | XMS_ITS | Encounter Summary ---
Author Organization [employer] Address [address] [facility] 7t [place] [address] Care Team Providers Care Net Mender Name Role Phone Name, Andre BARROSO Primary Care Provider [phone] Reason for Visit * Reason Onset Date Comments FYI 09/19/2023 Encounter Details Date Type Department Care Team (Late st Contact Info) Description 09/19/2023 Telephone [facility] MEDICINE 230 [place], [place] [phone] Name, MD Andre [address] [place] [address] FYI Social History Tobacco Use Types Packs/Day [...] 10:05 AM EST Tc from Rosario with [facility] calling to advise PCP pt is refusing PT services and will be discharged. Any questions, please contact Rosario at [phone] TC to patient and to Rosario to follow up on above message. No answer. Routing to PCP for review. * Telephone Encounter - Anneliese Iglesias - 09/19/2023 4:21 PM EST Tc from [place]ario with [facility] calling to advise PCP pt is refusing PT services and will be discharged. Any questions, please contact Rosario at [phone] documented in this encounter Plan of Treatment Not on file documented as of this encounter Visit Diagnoses Not on filedocumented in this encounter Additional Health Concerns Assessment Noted Time PHQ-9 Depression Total Score: 7 05/06/20 23 2:31 PM EDT documented as of this encounter Care Teams Net Mender Relationship Specialty Start Date End Date Name, MD Andre [address] [place] [address] PCP - General Family Medicine 02/06/16 documented as of this encounter
--- OUTSIDE RECORDS SUMMARY | 2025-09-15 18:10 | XMS_ITS | Encounter Summary ---
Author Organization [employer] Address [address] [facility] 7t [place] [address] Care Team Providers Care Tub Chucker Name Role Phone Name, Andre BARROSO Primary Care Provider [phone] Reason for Visit * Reason Onset Date Comments Appointment Request 12/04/2023 Encounter Details Date Type Department Care Team (Late st Contact Info) Description 12/04/2023 Telephone [facility] [address] [place] [address] Name, MD Andre [address] [place] [address] Appointment Request Social History Tobacco Use Types [...] Miscellaneous Notes * Telephone Encounter - Chriss Jimenez Merritt - 12/04/2023 1:58 PM EST Tc from pt requesting to r/s follow up appt on 12/18/23 due to transportation. Pt provided days that could come in, in January which are: January 13,,, Please contact pt @ [phone] documented in this encounter Plan of Treatment Not on file documented as of this encounter Visit Diagnoses Not on filedocumented in this encounter Additional Health Concerns Assessment Noted Time PHQ-9 Depression Total Score: 7 05/06/20 23 2:31 PM EDT documented as of this encounter Care Teams Tub Chucker Relationship Specialty Start Date End Date Name, MD Andre [address] [place] [address] PCP - General Family Medicine 02/06/16 documented as of this encounter
--- OUTSIDE RECORDS SUMMARY | 2025-09-15 18:10 | XMS_ITS | Encounter Summary ---
Author Organization [employer] Address [address] [facility] 7t [place] [address] Care Team Providers Care Sled Maker Name Role Phone Name, Andre BARROSO Primary Care Provider [phone] Reason for Visit * Reason Onset Date Comments chart prep 09/14/2025 Encounter Details Date Type Department Care Team (Late st Contact Info) Description 09/14/[address] [facility] [address] [place] [phone] Caryl Freed MA chart prep Social History Tobacco Use Types Packs/Day Years [...] encounter Miscellaneous Notes * Telephone Encounter - Caryl Freed MA - 09/14/2025 6:15 PM EST Chart Prep Labs: not done Images: not applicable Referrals: not applicable Vaccines due: PCV20, Tdap, Td, RSV, Zoster, and DTAP Screenings: not applicable Overdue care gaps: Not applicable documented in this encounter Plan of Treatment Not on file documented as of this encounter Visit Diagnoses Not on filedocumented in this encounter Additional Health Concerns Assessment Noted Time PHQ-9 Depression Total Score: 6 03/31/20 25 2:28 PM EDT documented as of this encounter Care Teams Sled Maker Relationship Specialty Start Date End Date Name, MD Andre [address] [place] [address] PCP - General Family Medicine 02/06/16 documented as of this encounter
--- OUTSIDE RECORDS SUMMARY | 2025-09-15 18:10 | XMS_ITS | Encounter Summary ---
Author Organization [employer] Address [address] [facility] 7t [place] [address] Care Team Providers Care Shipping Checker Name Role Phone Name, Andre BARROSO Primary Care Provider [phone] Reason for Visit * Reason Onset Date Comments Results 01/29/2025 Encounter Details Date Type Department Care Team ([facility] st Contact Info) Description 01/29/2025 Telephone [facility] [address] [place], [place] [phone] Name, MD Adnre [address] [place] [address] Results Social History Tobacco Use Types Packs/Day [...] encounter Miscellaneous Notes * Telephone Encounter - Wing Margarita RN - 01/29/2025 9:15 AM EDT Tc to pt regarding lab results from 12/08. Reported that PCP stated Vit D was low and supplements were to be sent. Pt confirms that she is currently taking them. Also request for labs done on that dayto be mailed to her. Confirmed her address and will mail lab results to her. Pt verbalized understanding and agreement with plan. * Telephone Encounter - Fabio Figueroa - 01/29/2025 8:36 AM EDT TC from pt requesting call back regarding Results. Type of results: Vitamin D, PTH , Metabolic panel Date when done: 12/08/2024 Facility: [facility] documented in this encounter Plan of Treatment Not on file documented as of this encounter Visit Diagnoses Not on filedocumented in this encounter Additional Health Concerns Assessment Noted Time PHQ-9 Depression Total Score: 8 05/21/20 24 1:45 PM EDT documented as of this encounter Care Teams Shipping Checker Relationship Specialty Start Date End Date Name, MD Andre [address] [place] [address] PCP - General Family Medicine 02/06/16 documented as of this encounter
--- OUTSIDE RECORDS SUMMARY | 2025-09-15 18:10 | XMS_ITS | Clinical Summary ---
Author Organization [employer] Address [address] [facility] 7t [place] [address] Care Team Providers Care Advertising Job Titles Name Role Phone Name, Andre BARROSO Primary Care Provider [phone] Allergies Active Allergy Reactions Criticality Noted Date Comments Erythromycin Palpitations Low 09/26/2022 Penicillin G Rash Low 07/10/2023 Penicillins 09/07/2020 Phenobarbital 07/10/2023 Procaine 07/10/2023 Sulfamethoxazole 09/07/2020 Sulfamethoxazole-Trimethoprim 2022 Thioridazine 07/10/2023 Trimethoprim 09/07/2020 Medications fluticasone furoate (Arnuity Ellipta) 100 MCG/ACT inhaler Inhale 1 puff Once per day. Rinse mouth with water after use to reduce aftertaste and incidence of candidiasis. Do not swallow. 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 For Delivery 30 capsule 11 5 12/10/19 26 Active Active Problems Patient Care Coordination No te Formatting of this note migh t be different from the original. C3/CM Sparkle Harper RN Problem Noted Date Diagnosed Date Vitamin D deficiency 03/31/2025 Fear of side effects of medication 01/20/2024 [...] Vit D rich foods Paroxysmal atrial fibrillation (CMS/HCC) 023 Assessment & Plan (05/22/2024 6:27 AM EDT): [...] Encounters Date Type Department Care Team Description 09/15/2025 2:30 PM EST Office Visit [facility] [address] [place] [address] Name, MD Andre Asthma, unspecified asthma severity, unspecified whether complicated, unspecified whether persistent (Primary Dx); Fear of side effects of medication; Chronic atrial fibrillation (CMS/HCC) (HCC); Rib pain; Vaccine refused by patient 09/15/2025 Travel 09/14/2025 Telephone [facility] [address] [place] [address] Caryl Freed MA chart prep 09/14/2025 Telephone [facility] [address] [place] [address] Caryl Freed MA chart prep 09/14/2025 Travel 09/06/2025 Telephone [facility] [address] [place] [address] Andre Rhodes MD 06/29/2025 Telephone [facility] [address] [place] [address] Caryl Freed MA OCT RECALLS from Last 3 Months Social History Tobacco [...] Mass Index 17.93 09/15/2025 2:33 PM EST Plan of Treatment Health Maintenance Due Date Last Done Comments DTaP/Tdap/Td Vaccines (1 - Tdap) 1959 Pneumococcal Vaccine: 50+ Years (1 of 2 - PCV) 1960 Zoster Vaccines (1 of 2) 1991 RSV Patients and Patients Aged 60 years or older (1 - 1-dose 75+ series) 2016 COVID-19 Vaccine ( - 2023-2 5 season) 2025 Influenza Vaccine (#1) 2025 Alcohol/Substance Use Screening 03/31/2026 03/31/2025 Depression Screening 03/31/2026 03/31/2025, 03/31/2025 SDOH Screening 03/31/2026 03/31/2025 Tobacco Screening 09/15/2026 09/15/2025 HIB Vaccines Aged Out No longer eligi [...] patient's age to complete this topic Meningococcal B Vaccine Aged Out No l onger eligible based on patient's age to complete this topic Meningococcal Vaccine Aged Out No john silverio eligible based on patient's age to complete this topic RSV under 20 months Aged Out No longe r eligible based on patient's age to complete this topic Rotavirus Vaccines Aged Out No longer eligible based on patient's age to complete this topic Procedures Procedure Name Priority Date/Time Associated Diagnosis Comments PTH, INTACT WITHOUT CALCIUM Routine 09/15/2025 3:10 PM EST Vitamin D deficiency Secondary hyperparathyroidism (CMS/HCC) VITAMIN D,25-OH,TOTAL,IA Routine 09/15/2025 3:10 PM EST Vitamin D deficiency Secondary hyperparathyroidism (CMS/HCC) BASIC METABOLIC PANEL Routine 09/15/2025 3:10 PM EST Vitamin D deficiency Secondary hyperparathyroidism (CMS/HCC) from Last 3 Months Results * (ABNORMAL) Vitamin D, 25-Hydroxy, Total, Immunoassay (09/15/2025 3:10 PM EST) Vitamin D 25-OH Total 21.7(L) >30 ng/mL [facility] Comment: Health Based Reference Values*< 20 ng/mL [id number] ng/mL Insufficient> 30 ng/mL Sufficient*Judy ZABALA. N Engl J Med. 2007;357:266-280There is no well-established upper level of normal vitamin Dlevels. Some laboratories use 50 ng/mL as an upper limit ofnormal. However, toxicity is patient-dependent and may occurat any level. Careful correlation with the patient'spresentation is necessary and, if there is concern forvitamin D toxicity, treatment should be consideredirrespective of the serum level.Care must be taken in interpreting Vitamin D results fromdifferent laboratories and methodologies. Published datademonstrated that results from patients undergoinghemodialysis may show a negative bias when tested withvarious automated 25-OH vitamin D assays when compared toLC-MS/MS.When testing samples from patients whose predominant form ofVitamin D is Vitamin D2, such as patients receiving VitaminD2 supplementation, results that are subtherapeutic shouldbe confirmed with another method such as LC-MS/MS. Blood Venous blood specimen / Unknown 09/15/2025 3:10 PM EST 09/15/2025 4:02 PM EST us Andre Rhodes MD LAB BLOOD ORDERABLES Final Resul t Performing Organization Address City/[facility]/ZIP Co de Phone Number [facility] [address] [place] [phone] * (ABNORMAL) PTH, Intact Without Calcium (09/15/2025 3:10 PM EST) Parathyroid Hormone, Intact 92.7(H) 8.7 - 77.1 pg/mL [facility] Blood Venous blood specimen / Unknown 09/15/2025 3:10 PM EST 09/15/2025 4:02 PM EST us Andre Rhodes MD LAB BLOOD ORDERABLES Final Resul t Performing Organization Address City/[facility] Co de Phone Number [facility] [address] [place] [phone] * (ABNORMAL) Basic Metabolic Panel (09/15/2025 3:10 PM EST) Sodium 142 135 - 145 mmol/L [facility] Potassium 4.5 3.3 - 5.1 mmol/L [facility] Chloride 106 96 - 108 mmol/L [facility] Carbon Dioxide 30(H) 22 - 29 mmol/L [facility] Anion Gap 11(L) 12 - 20 [facility] Urea Nitrogen (BUN) 12 9 - 16 mg/dL [facility] Creatinine, Serum 0.64 0.5 - 1.4 mg/dL [facility] Estimated Glomerular Filt Rate >60 [facility] Comment:Chronic Kidney Disea se: Estimated GFR < 60 mL/min/1.08m1Ytwocg Kidney Disease: Estimated GFR < 15 mL/min/1.73m2 Glucose 89 60 - 115 mg/dL [facility] Calcium 9.0 8.4 - 10.2 mg/dL [facility] Blood Venous blood specimen / Unknown 09/15/2025 3:10 PM EST 09/15/2025 4:02 PM EST us Andre Rhodes MD LAB BLOOD ORDERABLES Final Resul t [facility] [address] [place] [phone] from Last 3 Months Insurance MEDICARE Care Teams Advertising Job Titles Relationship Specialty Start Date End Date Name, MD Andre [address] [place] [phone] PCP - General Family Medicine 02/06/16
--- OUTSIDE RECORDS SUMMARY | 2025-09-15 18:10 | XMS_ITS | Encounter Summary ---
Author Organization [employer] Address [address] [facility] 7t [place] [address] Care Team Providers Care Utility Manager Name Role Phone Name, Andre BARROSO Primary Care Provider [phone] Reason for Visit * Reason Onset Date Comments chart prep 09/14/2025 Encounter Details Date Type Department Care Team (Late st Contact Info) Description 09/14/2025 Telephone [facility] [address] [place] [phone] Caryl Freed MA chart prep Social History [...] Encounter - Caryl Freed MA - 09/14/2025 6:08 PM EST Chart Prep Labs: not done [...] documented as of this encounter Care Teams Utility Manager Relationship Specialty Start Date End Date Name, MD Andre [address] [place] [address] PCP - General Family Medicine 02/06/16 documented as of this encounter
== END 2025-09-15 15:09 | disposition home or self-care (01) ==
LOC: HO.HHCL 15:08
PROVIDERS: PCP Internal Medicine Geriatric Medicine; Visit Provider Internal Medicine Geriatric Medicine
DX: N25.81 Secondary hyperparathyroidism of renal origin (principal); E55.9 Vitamin D deficiency, unspecified
CPT/HCPCS: 36415; 80048; 82306; 83970